=== PATIENT | female | born 1960 | race Caucasian/White ===

== ENCOUNTER 2019-10-10 15:49 | Emergency (ER) | payer OTHER ==
[2019-10-10 16:00] VITALS: BP 121/58
--- NOTE | 2019-10-10 16:29 | PHYS DOC ---
Past Medical History Past Medical History: Anxiety, Asthma, Cancer, COPD, CVA, Depression, GERD, Hypertension, NC, Seizure Additional Past Medical Histor: HEMRRHOIDS, HYPERLIPEMDEMIA, IBS Additional Past Surgical Histo: RIGHT LEG Alcohol Use: None Adult General Chief Complaint Chief Complaint: MEDICATION REFILL [facility] HPI Patient is a 59 year old female who presents to the emergency department with request for medication refills. Patient states she recently moved to this area and has ran out of her Ativan and trazodone. Patient states she takes half a milligram of Ativan 3 times a day and 50 mg of trazodone twice a day. She is requesting refills of these medications this time. She denies any pain or any complaints. All other ROS is neg unless otherwise noted in HPI. Review of Systems Review of Systems See Above Physical Exam Physical Exam Constitutional: Well developed, well nourished, no acute distress, non-toxic appearance. [] HENT: Normocephalic, atraumatic, bilateral external ears normal, Nose normal. [] Eyes: PERRLA, EOMI, conjunctiva normal, no discharge. [] Neck: Normal range of motion, no stridor. [] Cardiovascular:Heart rate regular rhythm Lungs & Thorax: Respirations even and unlabored, no retractions, no respiratory distress Skin: Warm, dry, no erythema, no rash. [] Extremities: No cyanosis, ROM intact Neurologic: Alert and oriented X 3, no focal deficits noted. [] Psychologic: Affect normal, judgement normal, mood normal. [] Current Patient Data Vital Signs Vital Signs Date Time Temp Pulse Resp B/P (MAP) Pulse Ox O2 Delivery O2 Flow Rate FiO2 10/10/19 16:00 97.7 75 12 121/58 (79) 99 Room Air 97.7 EKG EKG [] Radiology/Procedures Radiology/Procedures [] Course & Med Decision Making Course & Med Decision Making Pertinent Labs and Imaging studies reviewed. (See chart for details) [] Dragon Disclaimer Dragon Disclaimer This electronic medical record was generated, in whole or in part, using a voice recognition dictation system. Departure Departure Impression: Primary Impression: Medication refill Disposition: HOME, SELF-CARE Condition: STABLE Referrals: NO PCP (PCP) Patient Instructions: Medication Refill, Emergency Department Additional Instructions: Fill the medications and use as directed. Follow up with a primary care doctor for future refills of your medication. Return to the ER as needed. Scripts Trazodone Hcl (TRAZODONE HCL) 50 Mg Tablet 50 MG PO BID for 14 Days, #28 TAB 0 Refills Prov: SIVA ROY [employer] 10/10/19 Lorazepam (ATIVAN) 0.5 Mg Tablet 0.5 MG PO TID for 5 Days, #15 TAB 0 Refills Prov: SIVA ROY [employer] 10/10/19 SIVA ROY [employer] Oct 10, 2019 16:28
[2019-10-10] MEDS ORDERED: LORA0.5T96 PO (16:33)
[2019-10-10] MEDS ORDERED: TRAZ-118 PO (16:33)
== END 2019-10-10 16:36 | disposition home or self-care (01) ==
LOC: ER 15:49
DX: F41.9 Anxiety disorder, unspecified (principal); Z76.0 Encounter for issue of repeat prescription; F32.9 Major depressive disorder, single episode, unspecified; J44.9 Chronic obstructive pulmonary disease, unspecified; I10 Essential (primary) hypertension; K21.9 Gastro-esophageal reflux disease without esophagitis; I25.2 Old myocardial infarction; K58.9 Irritable bowel syndrome, unspecified; E78.5 Hyperlipidemia, unspecified; Z86.73 Personal history of transient ischemic attack (TIA), and cerebral infarction without residual deficits
CPT/HCPCS: 99283

== ENCOUNTER 2019-11-06 11:22 | Emergency (ER) | payer OTHER ==
[~2019-11-06] VITALS: Ht 152.4 cm; Wt 54.7 kg
[~2019-11-06 11:22] MED LIST: LORA0.5T96 PO; TRAZ-118 PO
[2019-11-06 11:36] VITALS: BP 130/78
[2019-11-06] MEDS ORDERED: LORA0.5T96 PO (12:13)
--- NOTE | 2019-11-06 12:23 | PHYS DOC ---
Past Medical History Past Medical History: Anxiety, Asthma, Cancer, COPD, CVA, Depression, GERD, Hypertension, ID, Seizure Additional Past Medical Histor: HEMRRHOIDS, HYPERLIPEMDEMIA, IBS Additional Past Surgical Histo: RIGHT LEG Smoking Status: Current Every Day Smoker Alcohol Use: None Adult General Chief Complaint Chief Complaint: MEDICATION REFILL HPI HPI Patient is a 59 year old m p/w med refill has pmd appointment on 11/16 has anxiety ran out of ativan just moved here hard to get doctor not suicidal just anxious and cant sleep Review of Systems Review of Systems Constitutional: Denies fever or chills [] Eyes: Denies change in visual acuity, redness, or eye pain [] Musculoskeletal: Denies back pain or joint pain [] Integument: Denies rash or skin lesions [] Neurologic: Denies headache, focal weakness or sensory changes [] Endocrine: Denies polyuria or polydipsia [] All other systems were reviewed and found to be within normal limits, except as documented in this note. Allergies Allergies Allergies Coded Allergies Type Severity Reaction Last Updated Verified Penicillins Allergy Intermediate 11/06/19 Yes codeine Allergy Intermediate 11/06/19 Yes iodine Allergy Intermediate 11/06/19 Yes Physical Exam Physical Exam Constitutional: Well developed, well nourished, no acute distress, non-toxic appearance. [] HENT: Normocephalic, atraumatic, bilateral external ears normal, oropharynx m oist, no oral exudates, nose normal. [] Eyes: PERRLA, EOMI, conjunctiva normal, no discharge. [] Neck: Normal range of motion, no tenderness, supple, no stridor. [] normal effort no increase work of breathing Skin: Warm, dry, no erythema, no rash. [] Back: No tenderness, no CVA tenderness. [] Extremities: No tenderness, no cyanosis, no clubbing, ROM intact, no edema. [] Neurologic: Alert and oriented X 3, normal motor function, normal sensory function, no focal deficits noted. [] Psychologic: mild anxiety Current Patient Data Vital Signs Vital Signs Date Time Temp Pulse Resp B/P (MAP) Pulse Ox O2 Delivery O2 Flow Rate FiO2 11/06/19 11:36 96.4 63 16 130/78 (95) 100 Room Air 96.4 EKG EKG [] Radiology/Procedures Radiology/Procedures [] Course & Med Decision Making Course & Med Decision Making Pertinent Labs and Imaging studies reviewed. (See chart for details) 59-year-old female presenting with anxiety requesting refill I told her I'll give her Lopid of Ativan to help get her through until her next appointment to avoid withdrawal but that this is not the place for medication refill she un derstands and was discharged in stable condition. Dragon Disclaimer Dragon Disclaimer This electronic medical record was generated, in whole or in part, using a voice recognition dictation system. Departure Departure Impression: Primary Impression: Medication refill Disposition: HOME, SELF-CARE Condition: STABLE Referrals: NO PCP (PCP) Patient Instructions: Anxiety and Panic Attacks, [id number] Scripts Lorazepam (ATIVAN) 0.5 Mg Tablet 0.5 MG PO TID PRN for ANXIETY / AGITATION, #20 TAB Prov: STACY RHODES MD 11/06/19 STACY RHODES MD Nov 06, 2019 12:23
== END 2019-11-06 12:20 | disposition home or self-care (01) ==
LOC: ER 11:22
DX: F41.9 Anxiety disorder, unspecified (principal); Z76.0 Encounter for issue of repeat prescription; J44.9 Chronic obstructive pulmonary disease, unspecified; K21.9 Gastro-esophageal reflux disease without esophagitis; I10 Essential (primary) hypertension; I25.2 Old myocardial infarction; Z86.73 Personal history of transient ischemic attack (TIA), and cerebral infarction without residual deficits; F17.200 Nicotine dependence, unspecified, uncomplicated; K58.9 Irritable bowel syndrome, unspecified; Z88.0 Allergy status to penicillin; Z88.5 Allergy status to narcotic agent; Z88.8 Allergy status to other drugs, medicaments and biological substances
CPT/HCPCS: 99283